=== PATIENT | female | born 1975 | race American Indian/Alaskan Native ===

== ENCOUNTER → 2018-10-30 10:21 | Outpatient (CLI) | payer OTHER, SELFPAY ==
--- NOTE | 2018-10-30 | DI.RAD.S_ITS ---
PROCEDURE: XR SHOULDER RT MIN 2V INDICATIONS: RIGHT SHOULDER PAIN TECHNIQUE: 3 views of the shoulder were acquired. COMPARISON: None. FINDINGS: Bones: No fractures or dislocations. Benign bone island right humeral head. No suspicious bony lesions. Visualized ribs appear intact. Soft tissues: No suspicious soft tissue calcifications. IMPRESSION: Normal right shoulder. Dictated by: Nubia Pride M.D. on 10/30/2018 at 11:53 Approved by: Nubia Pride M.D. on 10/30/2018 at 11:54
== END ==
PROVIDERS: PCP Family Medicine; Visit Provider Family Medicine
DX: M25.511 Pain in right shoulder (principal)
CPT/HCPCS: 73030

== ENCOUNTER → 2023-09-15 12:52 | Outpatient (CLI) | payer OTHER, SELFPAY ==
--- NOTE | 2023-09-15 12:57 | DI.RAD.S_ITS ---
PROCEDURE: XR ANKLE RT 2V INDICATIONS: ARTHRITIS TECHNIQUE: 3 views of the ankle were acquired. COMPARISON: None. FINDINGS: Bones: No fractures or dislocations. Ankle mortise is normally aligned. No suspicious bony lesions. Plantar calcaneal enthesophyte. Soft tissues: No tibiotalar joint effusion. Achilles tendon appears normal. IMPRESSION: No significant ankle arthritis. Dictated by: Riley Jones M.D. on 09/15/2023 at 14:36 Approved by: Riley Jones M.D. on 09/15/2023 at 14:37
== END ==
PROVIDERS: Referring Provider Physician Assistant; Visit Provider Physician Assistant
DX: M06.9 Rheumatoid arthritis, unspecified (principal)
CPT/HCPCS: 73600